=== PATIENT | male | born 2000 | race American Indian/Alaskan Native ===

== ENCOUNTER 2021-08-09 03:18 | Emergency (ER) | payer BC, OTHER ==
[2021-08-09 03:26] VITALS: BP 143/89; PULSE 134
== END 2021-08-09 04:10 | disposition home or self-care (01) ==
LOC: MW.ED 03:18
DX: S93.401A Sprain of unspecified ligament of right ankle, initial encounter (principal); J45.909 Unspecified asthma, uncomplicated; Z91.048 Other nonmedicinal substance allergy status; W00.0XXA Fall on same level due to ice and snow, initial encounter
CPT/HCPCS: 73610-26-RT; 73610-RT; 73620-26-RT; 73620-RT; 99283

== ENCOUNTER 2022-02-20 18:22 | Emergency (ER) | payer BC, OTHER ==
[2022-02-20 19:48] VITALS: BP 125/71; PULSE 79
== END 2022-02-20 19:48 | disposition home or self-care (01) ==
LOC: MW.ED 18:22
DX: J40 Bronchitis, not specified as acute or chronic (principal); Z20.822 Contact with and (suspected) exposure to COVID-19; Z91.041 Radiographic dye allergy status; Z91.048 Other nonmedicinal substance allergy status
CPT/HCPCS: 71045; 71045-26; 99283; 99284; U0002

== ENCOUNTER 2022-12-01 18:35 | Emergency (ER) | payer BC, OTHER ==
[2022-12-01] MEDS ORDERED: Sodium Chloride 0.9% 1,000 ML IV ONE (18:59)
[2022-12-01] MEDS ORDERED: Ondansetron 4 MG/2 ML SDV IVPUSH ONE (18:59)
[2022-12-01] MEDS ORDERED: Sodium Chloride 0.9% 2.5 ML Syringe FLUSH PRN (18:59)
[2022-12-01] MEDS ORDERED: Sodium Chloride 0.9% 10 ML Syringe FLUSH PRN (18:59)
[2022-12-01 19:14] LABS: BASOPHILS PERCENT AUTO 0.2 % (0.0-1.5); EOSINOPHILS ABSOLUTE AUTO 0.1 K/uL (0.0-0.7); EOSINOPHILS PERCENT AUTO 0.4 % (0.0-7.0); HEMATOCRIT 47.8 % (38.0-50.0); HEMOGLOBIN 16.3 g/dL (13.0-17.0); LYMPHOCYTES PERCENT AUTO 18.7 % (16.0-40.0); MEAN CORPUSCULAR HEMOGLOBIN 30.5 pg (27.0-32.0); MEAN CORPUSCULAR HGB CONC 34.1 g/dL (31.0-37.0); MEAN CORPUSCULAR VOLUME 89.5 fL (80.0-98.0); MONOCYTES ABSOLUTE AUTO 1.1 K/uL (0.0-0.8); MONOCYTES PERCENT AUTO 6.5 % (0.0-15.0); NEUTROPHILS PERCENT AUTO 74.2 % (48.0-80.0); PLATELET COUNT,PLT 217 K/uL (150-400); RED BLOOD CELL COUNT 5.34 M/uL (4.50-5.90); WHITE BLOOD CELL COUNT,WBC 16.15 K/uL (4.0-11.0)
[2022-12-01 19:57] LABS: ALANINE AMINOTRANSFERASE,ALT 49 IU/L (14-63); ALKALINE PHOSPHATASE 76 U/L (46-116); ASPARTATE AMNIOTRANSFERASE,AST 22 IU/L (15-37); BILIRUBIN TOTAL 0.5 mg/dL (0.2-1.0); BLOOD UREA NITROGEN,BUN 15 mg/dL (7.0-18.0); CALCIUM 9.2 mg/dL (8.5-10.1); CARBON DIOXIDE,CO2 27.7 mmol/L (21.0-32.0); CHLORIDE,CL 100 mmol/L (98-107); CREATININE 0.9 mg/dL (0.8-1.3); EST CRCL DRUG DOSING (CG) 135.96 mL/min; GLUCOSE RANDOM 131 mg/dL (74-106); LIPASE 66 U/L (73-393); POTASSIUM,K 3.8 mmol/L (3.5-5.1); PROTEIN TOTAL,TP 7.9 g/dL (6.4-8.2); SODIUM,NA 136 mmol/L (136-148)
[2022-12-01 20:20] LABS: ESTIMATED GFR 123 mL/min (>60)
[2022-12-01 20:54] LABS: APPEARANCE,URINE CLEAR; BILIRUBIN,URINE NEGATIVE (NEGATIVE); COLOR,URINE YELLOW; GLUCOSE,URINE NEGATIVE (NEGATIVE); KETONES,URINE NEGATIVE (NEGATIVE); LEUKOCYTE ESTERASE,URINE NEGATIVE (NEGATIVE); NITRITE,URINE NEGATIVE (NEGATIVE); OCCULT BLOOD,URINE TRACE-INTACT (NEGATIVE); PROTEIN,URINE NEGATIVE (NEGATIVE); UROBILINOGEN,URINE 0.2 EU/dL (<2.0)
[2022-12-01 21:24] LABS: BACTERIA,URINE RARE (NEGATIVE); RBC,URINE 0-1 (0-2/HPF); WBC,URINE 0-1 (0-5/HPF)
[2022-12-01 21:25] LABS: EPITHELIAL CELLS,URINE RARE (NONE-FEW)
[2022-12-02 01:43] VITALS: BP 114/61; PULSE 78
== END 2022-12-01 21:50 | disposition home or self-care (01) ==
LOC: MW.ED 18:35
DX: E86.0 Dehydration (principal); J45.909 Unspecified asthma, uncomplicated; Z91.048 Other nonmedicinal substance allergy status; Z91.041 Radiographic dye allergy status
CPT/HCPCS: 36415; 71045; 80053; 81001; 83690; 84484; 85025; 93005; 96361; 96374; 99284; J2405; J3490; J7030; 93010

== ENCOUNTER 2023-02-06 12:36 | Emergency (ER) | payer BC, OTHER ==
[2023-02-06 12:47] VITALS: BP 128/84; PULSE 92
== END 2023-02-06 13:11 | disposition home or self-care (01) ==
LOC: MW.ED 12:36
DX: H66.92 Otitis media, unspecified, left ear (principal); Z91.041 Radiographic dye allergy status; Z91.09 Other allergy status, other than to drugs and biological substances
CPT/HCPCS: 99282; 99283

== ENCOUNTER 2024-07-01 19:35 | Emergency (ER) | payer BC ==
[2024-07-01 20:16] LABS: BASOPHILS ABSOLUTE AUTO 0.05 K/uL (0.00-0.20); BASOPHILS PERCENT AUTO 0.6 % (0.0-1.0); EOSINOPHILS ABSOLUTE AUTO 0.52 K/uL (0.00-0.45); EOSINOPHILS PERCENT AUTO 5.8 % (0.0-6.0); HEMATOCRIT 49.1 % (42.0-52.0); HEMOGLOBIN 16.7 g/dL (14.0-18.0); IMMATURE GRAN ABSOLUTE AUTO 0.03 K/uL (0.00-0.05); IMMATURE GRAN PERCENT AUTO 0.3 % (0.0-0.4); LYMPHOCYTES ABSOLUTE AUTO 2.71 K/uL (1.00-4.80); LYMPHOCYTES PERCENT AUTO 30.2 % (24.0-44.0); MEAN CORPUSCULAR HEMOGLOBIN 30.8 pg (28.0-32.0); MEAN CORPUSCULAR VOLUME 90.4 fL (83.0-99.0); MONOCYTES ABSOLUTE AUTO 0.92 K/uL (0.00-0.80); MONOCYTES PERCENT AUTO 10.2 % (0.0-8.0); NEUTROPHILS ABSOLUTE AUTO 4.75 K/uL (1.80-7.70); NEUTROPHILS PERCENT AUTO 52.9 % (41.0-71.0); PLATELET COUNT,PLT 219 K/uL (150-400); RED BLOOD CELL COUNT 5.43 M/uL (4.52-5.90); WHITE BLOOD CELL COUNT,WBC 8.98 K/uL (3.9-11.3)
[2024-07-01 20:21] LABS: BLOOD UREA NITROGEN,BUN 16 mg/dL (7.0-18.0); CALCIUM 9.1 mg/dL (8.5-10.1); CHLORIDE,CL 103 mmol/L (98-107); CREATININE 0.9 mg/dL (0.8-1.3); GLUCOSE RANDOM 107 mg/dL (74-106); POTASSIUM,K 3.9 mmol/L (3.5-5.1); SODIUM,NA 138 mmol/L (136-148)
[2024-07-01] MEDS: Sodium Chloride 0.9% 1,000 ML IV ONE (20:22)
[2024-07-01 20:23] LABS: ESTIMATED GFR 122 mL/min (>60)
[2024-07-01] MEDS: Metoclopramide 10 MG/2 ML SDV IVPUSH ONE (20:40)
[2024-07-01] MEDS: Dexamethasone 4 MG/ML SDV IVPUSH STA (20:40)
[2024-07-01 23:17] VITALS: BP 121/68; PULSE 77
== END 2024-07-01 23:16 | disposition home or self-care (01) ==
LOC: MW.ED 19:35
DX: G43.909 Migraine, unspecified, not intractable, without status migrainosus (principal); F17.210 Nicotine dependence, cigarettes, uncomplicated; Z79.51 Long term (current) use of inhaled steroids; Z79.899 Other long term (current) drug therapy; Z91.09 Other allergy status, other than to drugs and biological substances; Z91.041 Radiographic dye allergy status
CPT/HCPCS: 36415; 70450; 80048; 85025; 93005; 96361; 96374; 96375; 99284; J1100; J2765; J7030